=== PATIENT | female | born 1985 | race Caucasian/White ===

== ENCOUNTER 2021-04-23 11:24 | Emergency (ER) | payer BC ==
[~2021-04-23] VITALS: Ht 162.6 cm; Wt 81.6 kg
[2021-04-23 11:34] VITALS: BP_SYST 131
[2021-04-23] MEDS ORDERED: MORPHINE 4 MG INJ. 4 MG/ML VIAL IM ONE (12:15)
[2021-04-23] MEDS ORDERED: KETAMINE 30 MG/3 ML SYRINGE IM ONE (12:15)
[2021-04-23 12:32] LABS: BASOPHILS % (AUTO) 0.2 % (0.0-2.0); EOSINOPHILS # (AUTO) 0.1 K/uL (0.0-0.4); EOSINOPHILS % (AUTO) 1.1 % (0.0-4.0); HEMATOCRIT 47.9 % (36-48); HEMOGLOBIN 16.3 g/dL (12.0-16.0); LYMPHOCYTES # (AUTO) 0.4 K/uL (1.0-5.5); LYMPHOCYTES % (AUTO) 3.9 % (20.5-51.5); MEAN CORPUSCULAR HEMOGLOBIN 31 pg (27-31); MEAN CORPUSCULAR HGB CONC 34 % (32-36); MEAN CORPUSCULAR VOLUME 90 fL (79.0-98.0); MONOCYTES # (AUTO) 0.6 K/uL (0.0-1.0); MONOCYTES % (AUTO) 6.4 % (1.7-9.3); NEUTROPHILS # (AUTO) 8.5 K/uL (1.8-7.7); NEUTROPHILS % (AUTO) 88.4 % (40.0-70.0); PLATELET COUNT (AUTO) 191 K/uL (130-430); RED CELL DISTRIBUTION WIDTH 15.3 % (9.0-15.0); WHITE BLOOD COUNT (AUTO) 9.7 K/uL (4.8-10.8)
[2021-04-23 12:49] LABS: CALCIUM 8.5 mg/dL (8.4-11.0); CREATININE 0.86 mg/dL (0.55-1.30); POTASSIUM 3.8 mmol/L (3.5-5.1)
[2021-04-23 13:05] LABS: ALBUMIN 3.1 g/dL (3.4-4.8); TOTAL BILIRUBIN 0.3 mg/dL (0.0-1.0)
[2021-04-23] MEDS ORDERED: HYDR-3927 PO (13:20)
[2021-04-23 13:36] VITALS: BP_SYST 131
== END 2021-04-23 13:36 | disposition home or self-care (01) ==
LOC: SED 11:24
DX: M54.6 Pain in thoracic spine (principal); C72.0 Malignant neoplasm of spinal cord; Z79.899 Other long term (current) drug therapy
CPT/HCPCS: 36415; 80053; 85025; 96372; 99284; J2270

== ENCOUNTER 2023-05-19 15:07 | Inpatient (IN) | payer BC ==
[~2023-05-19] VITALS: Ht 165.1 cm; Wt 86.2 kg
[~2023-05-19 15:07] MED LIST: HYDR-3927 PO
[2023-05-19 15:37] VITALS: BP_SYST 122; PULSE 129; RESP 21; TEMP 98.7; O2SAT 100
[2023-05-19] MEDS ORDERED: MORPHINE 2 MG/ML INJ. SYRINGE IVP ONE (16:00)
[2023-05-19] MEDS ORDERED: ONDANSETRON HCL 4 MG/2 ML VIAL IVP ONE (16:00)
[2023-05-19] MEDS ORDERED: NACL 0.9% 1,000 ML IV ONE ×2 (16:00→20:45)
[2023-05-19 16:53] LABS: BASOPHILS % (AUTO) 0.6 % (0.0-2.0); EOSINOPHILS % (AUTO) 0.5 % (0.0-4.0); HEMATOCRIT 29.2 % (36-48); HEMOGLOBIN 9.8 g/dL (12.0-16.0); LYMPHOCYTES # (AUTO) 0.8 K/uL (1.0-5.5); LYMPHOCYTES % (AUTO) 10.5 % (20.5-51.5); MEAN CORPUSCULAR HEMOGLOBIN 30 pg (27-31); MEAN CORPUSCULAR HGB CONC 33 % (32-36); MEAN CORPUSCULAR VOLUME 90 fL (79.0-98.0); MONOCYTES # (AUTO) 0.7 K/uL (0.0-1.0); MONOCYTES % (AUTO) 9.2 % (1.7-9.3); NEUTROPHILS # (AUTO) 6.4 K/uL (1.8-7.7); NEUTROPHILS % (AUTO) 79.2 % (40.0-70.0); PLATELET COUNT (AUTO) 319 K/uL (130-430); RED BLOOD CELL COUNT(AUTO) 3.25 MIL/uL (4.2-6.2); RED CELL DISTRIBUTION WIDTH 13.1 % (9.0-15.0)
[2023-05-19 17:10] LABS: CALCIUM 8.9 mg/dL (8.4-11.0); CREATININE 1.25 mg/dL (0.55-1.30); POTASSIUM 4.1 mmol/L (3.5-5.1)
[2023-05-19 17:17] LABS: ALBUMIN 2.9 g/dL (3.4-4.8); TOTAL BILIRUBIN 0.5 mg/dL (0.0-1.0); TOTAL PROTEIN, SERUM 7.7 g/dL (6.4-8.3)
[2023-05-19 18:50] LABS: BILIRUBIN,URINE NEGATIVE (NEGATIVE); BLOOD, URINE 1+ (NEGATIVE); CLARITY/URINE Cloudy (CLEAR); COLOR,URINE YELLOW (YELLOW); GLUCOSE,URINE NEGATIVE (NEGATIVE); KETONES,URINE NEGATIVE (NEGATIVE); LEUKOCYTE ESTERASE ,URINE 1+ (NEGATIVE); NITRITE, URINE POSITIVE (NEGATIVE); PROTEIN URINE 2+ (NEGATIVE)
[2023-05-19 19:10] LABS: COVID19 ANTIGEN SOFIA FIA NEGATIVE (NEGATIVE)
[2023-05-19 19:22] LABS: INFLUENZA TYPE A negative (NEGATIVE); INFLUENZA TYPE B NEGATIVE (NEGATIVE)
[2023-05-19] MEDS ORDERED: MORPHINE 4 MG INJ. 4 MG/ML VIAL IM ONE (19:30)
[2023-05-19] MEDS ORDERED: IBUPROFEN 600 MG TABLET PO ONE (19:45)
[2023-05-19] MEDS ORDERED: ACETAMINOPHEN 325 MG TABLET PO ONE (19:45)
[2023-05-19 19:48] LABS: BACTERIA,URINE MANY /HPF (None Seen); MUCUS,URINE None Seen /LPF (None Seen)
[2023-05-19] MEDS ORDERED: OXYC-521 PO (21:45)
[2023-05-19] MEDS ORDERED: [UNRECOGNIZED DRUG - CODE] PO (21:45)
[2023-05-19] MEDS ORDERED: ONDA4TAB11 PO (21:45)
[2023-05-19] MEDS ORDERED: GABA-534 PO (21:45)
[2023-05-19] MEDS ORDERED: METH500T PO (21:45)
[2023-05-19] MEDS ORDERED: NORT50CA5 PO (21:45)
[2023-05-19] MEDS ORDERED: D5/0.45 NS 1,000 ML IV ONE (21:45)
[2023-05-19] MEDS ORDERED: ONDANSETRON HCL 4 MG/2 ML VIAL IVP PRN (22:00)
[2023-05-19] MEDS: GABAPENTIN 300 MG CAPSULE PO SCH (22:53)
[2023-05-19 23:52] VITALS: BP_SYST 105; PULSE 109; RESP 18; TEMP 97.5
[2023-05-20 00:15] VITALS: O2SAT 93
[2023-05-20] MEDS: oxyCODONE HCL 5 MG TABLET PO PRN ×3 (03:31→15:32)
[2023-05-20] MEDS: GABAPENTIN 300 MG CAPSULE PO SCH ×3 (06:13→21:13)
[2023-05-20] MEDS: SIMETHICONE 80 MG TAB.CHEW PO SCH ×4 (06:54→21:14)
[2023-05-20] MEDS: methocarbamoL 500 MG TABLET PO PRN (06:54)
[2023-05-20 08:00] VITALS: O2SAT 95
[2023-05-20 08:30] VITALS: BP_SYST 115; PULSE 113; RESP 16; TEMP 101.8; O2SAT 95
[2023-05-20] MEDS ORDERED: ACETAMINOPHEN 325 MG TABLET ONE (08:52)
[2023-05-20] MEDS ORDERED: ACETAMINOPHEN 325 MG TABLET PO PRN (09:15)
[2023-05-20 10:32] LABS: BASOPHILS % (AUTO) 0.3 % (0.0-2.0); EOSINOPHILS % (AUTO) 0.2 % (0.0-4.0); HEMATOCRIT 26.7 % (36-48); HEMOGLOBIN 8.9 g/dL (12.0-16.0); LYMPHOCYTES % (AUTO) 9.7 % (20.5-51.5); MEAN CORPUSCULAR HEMOGLOBIN 29 pg (27-31); MEAN CORPUSCULAR HGB CONC 33 % (32-36); MEAN CORPUSCULAR VOLUME 88 fL (79.0-98.0); MONOCYTES # (AUTO) 0.9 K/uL (0.0-1.0); MONOCYTES % (AUTO) 9.4 % (1.7-9.3); NEUTROPHILS # (AUTO) 8.1 K/uL (1.8-7.7); NEUTROPHILS % (AUTO) 80.4 % (40.0-70.0); PLATELET COUNT (AUTO) 282 K/uL (130-430); RED BLOOD CELL COUNT(AUTO) 3.03 MIL/uL (4.2-6.2)
[2023-05-20 10:35] LABS: ALBUMIN 2.5 g/dL (3.4-4.8); CALCIUM 7.9 mg/dL (8.4-11.0); CREATININE 1.21 mg/dL (0.55-1.30); POTASSIUM 3.8 mmol/L (3.5-5.1); TOTAL BILIRUBIN 0.6 mg/dL (0.0-1.0); TOTAL PROTEIN, SERUM 6.9 g/dL (6.4-8.3)
[2023-05-20] MEDS: cefTRIAXone 1 GM IVPB PREMIX 50 ML IV SCH (10:45)
[2023-05-20 12:31] VITALS: BP_SYST 115; PULSE 106; RESP 19; TEMP 97.8; O2SAT 97
[2023-05-20] MEDS ORDERED: COMMUNICATION ORDER XX ONE (13:15)
[2023-05-20] MEDS: [UNRECOGNIZED DRUG - OTHER] PO SCH (13:40)
[2023-05-20] MEDS: ACETAMINOPHEN 325 MG TABLET PO PRN (15:33)
[2023-05-20 16:02] VITALS: BP_SYST 117; PULSE 110; RESP 17; TEMP 100.8; O2SAT 96
[2023-05-20 20:00] VITALS: BP_SYST 130; PULSE 124; RESP 20; TEMP 99.7; O2SAT 97
[2023-05-20] MEDS: methocarbamoL 500 MG TABLET PO SCH (21:14)
[2023-05-20] MEDS: NORTRIPTYLINE HCL 25 MG CAPSULE PO SCH (21:14)
[2023-05-21] VITALS: BP_SYST 104; PULSE 124; RESP 16; TEMP 97.5; O2SAT 91
[2023-05-21 05:41] LABS: BASOPHILS # (AUTO) 0.1 K/uL (0.0-0.2); BASOPHILS % (AUTO) 1.1 % (0.0-2.0); EOSINOPHILS # (AUTO) 0.1 K/uL (0.0-0.4); EOSINOPHILS % (AUTO) 0.6 % (0.0-4.0); HEMATOCRIT 25.1 % (36-48); HEMOGLOBIN 8.3 g/dL (12.0-16.0); LYMPHOCYTES # (AUTO) 0.8 K/uL (1.0-5.5); LYMPHOCYTES % (AUTO) 7.4 % (20.5-51.5); MEAN CORPUSCULAR HEMOGLOBIN 30 pg (27-31); MEAN CORPUSCULAR HGB CONC 33 % (32-36); MEAN CORPUSCULAR VOLUME 90 fL (79.0-98.0); MONOCYTES # (AUTO) 0.9 K/uL (0.0-1.0); MONOCYTES % (AUTO) 7.8 % (1.7-9.3); NEUTROPHILS # (AUTO) 9.1 K/uL (1.8-7.7); NEUTROPHILS % (AUTO) 83.1 % (40.0-70.0); PLATELET COUNT (AUTO) 249 K/uL (130-430); RED CELL DISTRIBUTION WIDTH 13.3 % (9.0-15.0)
[2023-05-21 05:58] LABS: ALBUMIN 2.2 g/dL (3.4-4.8); BILIRUBIN,DIRECT 0.3 mg/dL (0.0-0.3); CALCIUM 8.2 mg/dL (8.4-11.0); CREATININE 1.16 mg/dL (0.55-1.30); POTASSIUM 3.8 mmol/L (3.5-5.1); TOTAL BILIRUBIN 0.5 mg/dL (0.0-1.0); TOTAL PROTEIN, SERUM 6.6 g/dL (6.4-8.3)
[2023-05-21] MEDS: SIMETHICONE 80 MG TAB.CHEW PO SCH ×4 (07:11→22:03)
[2023-05-21] MEDS: GABAPENTIN 300 MG CAPSULE PO SCH ×3 (07:11→22:01)
[2023-05-21 07:30] VITALS: O2SAT 93
[2023-05-21 08:05] VITALS: BP_SYST 101; PULSE 131; RESP 18; TEMP 99.3; O2SAT 93
[2023-05-21] MEDS: oxyCODONE HCL 5 MG TABLET PO PRN (08:07)
[2023-05-21] MEDS: BISACODYL 10 MG/SUPPOSITORY RC SCH (08:07)
[2023-05-21] MEDS: cefTRIAXone 1 GM IVPB PREMIX 50 ML IV SCH (11:47)
[2023-05-21] MEDS ORDERED: [UNRECOGNIZED DRUG - OTHER] PO SCH (12:00)
[2023-05-21 12:34] VITALS: BP_SYST 121; PULSE 121; RESP 18; TEMP 100.8; O2SAT 93
[2023-05-21] MEDS: ACETAMINOPHEN 325 MG TABLET PO PRN ×2 (12:42→22:06)
[2023-05-21] MEDS: [UNRECOGNIZED DRUG - OTHER] PO SCH (12:43)
[2023-05-21 16:55] VITALS: BP_SYST 100; PULSE 118; RESP 18; TEMP 99; O2SAT 94
[2023-05-21 20:00] VITALS: BP_SYST 111; PULSE 125; RESP 18; TEMP 98.6; O2SAT 95
[2023-05-21] MEDS: NORTRIPTYLINE HCL 25 MG CAPSULE PO SCH (22:03)
[2023-05-21] MEDS: methocarbamoL 500 MG TABLET PO SCH (22:03)
[2023-05-22] VITALS (9 sets, daily range): BP systolic 101–117; PULSE 115–122; RESP 18–19; TEMP 97.3–100.1; O2SAT 90–98
[2023-05-22] MEDS: methocarbamoL 500 MG TABLET PO PRN (06:35)
[2023-05-22] MEDS: SIMETHICONE 80 MG TAB.CHEW PO SCH ×4 (06:35→20:57)
[2023-05-22] MEDS: GABAPENTIN 300 MG CAPSULE PO SCH (06:35)
[2023-05-22 06:49] LABS: BASOPHILS % (AUTO) 0.2 % (0.0-2.0); EOSINOPHILS # (AUTO) 0.1 K/uL (0.0-0.4); EOSINOPHILS % (AUTO) 0.7 % (0.0-4.0); HEMATOCRIT 23.7 % (36-48); HEMOGLOBIN 7.9 g/dL (12.0-16.0); LYMPHOCYTES # (AUTO) 1.2 K/uL (1.0-5.5); MEAN CORPUSCULAR HEMOGLOBIN 30 pg (27-31); MEAN CORPUSCULAR HGB CONC 33 % (32-36); MEAN CORPUSCULAR VOLUME 90 fL (79.0-98.0); MONOCYTES % (AUTO) 8.9 % (1.7-9.3); NEUTROPHILS # (AUTO) 8.6 K/uL (1.8-7.7); NEUTROPHILS % (AUTO) 79.2 % (40.0-70.0); PLATELET COUNT (AUTO) 291 K/uL (130-430); RED BLOOD CELL COUNT(AUTO) 2.63 MIL/uL (4.2-6.2); RED CELL DISTRIBUTION WIDTH 13.5 % (9.0-15.0); WHITE BLOOD COUNT (AUTO) 10.8 K/uL (4.8-10.8)
[2023-05-22 07:14] LABS: CALCIUM 8.6 mg/dL (8.4-11.0); CREATININE 1.13 mg/dL (0.55-1.30); POTASSIUM 3.7 mmol/L (3.5-5.1); TOTAL BILIRUBIN 0.3 mg/dL (0.0-1.0); TOTAL PROTEIN, SERUM 6.7 g/dL (6.4-8.3)
[2023-05-22 07:47] LABS: ERYTHROCYTE SEDIMENTATION RATE 62 MM/HR (0-20)
[2023-05-22] MEDS: BISACODYL 10 MG/SUPPOSITORY RC SCH (09:15)
[2023-05-22 12:06] LABS: HEPATITIS C VIRUS AB Non Reactive (Non Reactive)
[2023-05-22 13:06] LABS: HEPATITIS A AB, IgM Negative (Negative); HEPATITIS B CORE AB, IgM Negative (Negative); HEPATITIS B SURFACE AG Negative (Negative)
[2023-05-22] MEDS: [UNRECOGNIZED DRUG - OTHER] PO SCH (13:09)
[2023-05-22] MEDS: GABAPENTIN 400 MG CAPSULE PO SCH ×2 (14:34→20:55)
[2023-05-22] MEDS: oxyCODONE HCL 5 MG TABLET PO PRN (17:04)
[2023-05-22] MEDS: ALBUTEROL SULFATE 0.083% 2.5 MG/3 ML VIAL.NEB INH SCH ×2 (19:40→23:22)
[2023-05-22] MEDS: IPRATROPIUM BROM 0.5 MG/2.5 ML VIAL.NEB (ATROVENT) INH SCH ×2 (19:40→23:22)
[2023-05-22] MEDS: methocarbamoL 500 MG TABLET PO SCH (20:55)
[2023-05-22] MEDS: NORTRIPTYLINE HCL 25 MG CAPSULE PO SCH (20:56)
[2023-05-22] MEDS: ACETAMINOPHEN 325 MG TABLET PO PRN (20:56)
[2023-05-23] VITALS (9 sets, daily range): BP systolic 114–125; PULSE 109–121; RESP 16–18; TEMP 97.4–99.5; O2SAT 90–98
[2023-05-23] MEDS: oxyCODONE HCL 5 MG TABLET PO PRN ×4 (02:36→21:09)
[2023-05-23] MEDS: ALBUTEROL SULFATE 0.083% 2.5 MG/3 ML VIAL.NEB INH SCH ×5 (03:00→20:29)
[2023-05-23] MEDS: IPRATROPIUM BROM 0.5 MG/2.5 ML VIAL.NEB (ATROVENT) INH SCH ×5 (03:00→20:29)
[2023-05-23] MEDS: GABAPENTIN 400 MG CAPSULE PO SCH ×3 (05:44→21:08)
[2023-05-23] MEDS: SIMETHICONE 80 MG TAB.CHEW PO SCH ×4 (07:00→21:00)
[2023-05-23 07:07] LABS: BASOPHILS # (AUTO) 0.1 K/uL (0.0-0.2); BASOPHILS % (AUTO) 0.6 % (0.0-2.0); EOSINOPHILS # (AUTO) 0.1 K/uL (0.0-0.4); EOSINOPHILS % (AUTO) 0.6 % (0.0-4.0); HEMATOCRIT 24.6 % (36-48); HEMOGLOBIN 8.1 g/dL (12.0-16.0); LYMPHOCYTES % (AUTO) 10.6 % (20.5-51.5); MEAN CORPUSCULAR HEMOGLOBIN 30 pg (27-31); MEAN CORPUSCULAR HGB CONC 33 % (32-36); MEAN CORPUSCULAR VOLUME 90 fL (79.0-98.0); MONOCYTES % (AUTO) 10.3 % (1.7-9.3); NEUTROPHILS # (AUTO) 7.5 K/uL (1.8-7.7); NEUTROPHILS % (AUTO) 77.9 % (40.0-70.0); PLATELET COUNT (AUTO) 398 K/uL (130-430); RED BLOOD CELL COUNT(AUTO) 2.73 MIL/uL (4.2-6.2); RED CELL DISTRIBUTION WIDTH 13.7 % (9.0-15.0); WHITE BLOOD COUNT (AUTO) 9.6 K/uL (4.8-10.8)
[2023-05-23 07:16] LABS: CALCIUM 8.2 mg/dL (8.4-11.0); CREATININE 1.14 mg/dL (0.55-1.30); POTASSIUM 3.5 mmol/L (3.5-5.1)
[2023-05-23 07:38] LABS: ERYTHROCYTE SEDIMENTATION RATE 52 MM/HR (0-20)
[2023-05-23] MEDS: BISACODYL 10 MG/SUPPOSITORY RC SCH (08:31)
[2023-05-23] MEDS: methocarbamoL 500 MG TABLET PO PRN (11:00)
[2023-05-23] MEDS: [UNRECOGNIZED DRUG - OTHER] PO SCH (11:01)
[2023-05-23] MEDS: NORTRIPTYLINE HCL 25 MG CAPSULE PO SCH (21:08)
[2023-05-23] MEDS: methocarbamoL 500 MG TABLET PO SCH (21:09)
[2023-05-23] MEDS: traZODone HCL 50 MG TABLET (DESYREL) PO PRN (23:00)
[2023-05-24] VITALS (18 sets, daily range): BP systolic 99–148; PULSE 105–126; RESP 16–22; TEMP 98–99.9; O2SAT 86–94
[2023-05-24] MEDS: dilTIAZem HCL IVP 5 MG/ML VIAL IVP PRN (00:14)
[2023-05-24] MEDS: ALBUTEROL SULFATE 0.083% 2.5 MG/3 ML VIAL.NEB INH SCH ×7 (00:20→23:00)
[2023-05-24] MEDS: IPRATROPIUM BROM 0.5 MG/2.5 ML VIAL.NEB (ATROVENT) INH SCH ×7 (00:20→23:00)
[2023-05-24] MEDS: oxyCODONE HCL 5 MG TABLET PO PRN ×2 (05:29→17:15)
[2023-05-24] MEDS: GABAPENTIN 400 MG CAPSULE PO SCH ×3 (05:29→21:23)
[2023-05-24] MEDS: SIMETHICONE 80 MG TAB.CHEW PO SCH ×4 (05:29→20:54)
[2023-05-24 07:39] LABS: BASOPHILS % (AUTO) 0.4 % (0.0-2.0); EOSINOPHILS # (AUTO) 0.1 K/uL (0.0-0.4); HEMATOCRIT 24.1 % (36-48); LYMPHOCYTES # (AUTO) 1.2 K/uL (1.0-5.5); LYMPHOCYTES % (AUTO) 11.3 % (20.5-51.5); MEAN CORPUSCULAR HEMOGLOBIN 30 pg (27-31); MEAN CORPUSCULAR HGB CONC 33 % (32-36); MEAN CORPUSCULAR VOLUME 89 fL (79.0-98.0); MONOCYTES # (AUTO) 1.1 K/uL (0.0-1.0); MONOCYTES % (AUTO) 10.9 % (1.7-9.3); NEUTROPHILS # (AUTO) 7.9 K/uL (1.8-7.7); NEUTROPHILS % (AUTO) 76.4 % (40.0-70.0); PLATELET COUNT (AUTO) 494 K/uL (130-430); WHITE BLOOD COUNT (AUTO) 10.4 K/uL (4.8-10.8)
[2023-05-24 07:54] LABS: CALCIUM 8.3 mg/dL (8.4-11.0); CREATININE 1.04 mg/dL (0.55-1.30); FREE T4 (FREE THYROXINE) 1.4 ng/dL (0.6-1.6); POTASSIUM 3.7 mmol/L (3.5-5.1); THYROID STIMULATING HORMONE 0.87 uIu/mL (0.34-4.82)
[2023-05-24 08:14] LABS: ERYTHROCYTE SEDIMENTATION RATE 62 MM/HR (0-20)
[2023-05-24] MEDS: BISACODYL 10 MG/SUPPOSITORY RC SCH (09:00)
[2023-05-24 10:43] LABS: ABG O2 SAT% ESTIMATE 93.8 % (94.0-100.0); BLOOD GAS BASE EXCESS 3.1 mmol/L (-3.0-3.0); BLOOD GAS HCO3 28.7 mmol/L (21.0-27.0); BLOOD GAS PCO2 47.5 mmHg (35.0-45.0); BLOOD GAS PH 7.399 (7.350-7.450); BLOOD GAS PO2 69.4 mmHg (75.0-100.0)
[2023-05-24 10:46] LABS: ALLEN'S TEST POSITIVE (P)
[2023-05-24] MEDS: [UNRECOGNIZED DRUG - OTHER] PO SCH (12:00)
[2023-05-24] MEDS: methocarbamoL 500 MG TABLET PO PRN (14:37)
[2023-05-24] MEDS: methocarbamoL 500 MG TABLET PO SCH (20:54)
[2023-05-24] MEDS: NORTRIPTYLINE HCL 25 MG CAPSULE PO SCH (20:54)
[2023-05-25] VITALS (28 sets, daily range): BP systolic 92–163; PULSE 90–125; RESP 12–26; TEMP 98–98.6; O2SAT 80–94
[2023-05-25] MEDS: ALBUTEROL SULFATE 0.083% 2.5 MG/3 ML VIAL.NEB INH SCH ×6 (02:47→23:29)
[2023-05-25] MEDS: IPRATROPIUM BROM 0.5 MG/2.5 ML VIAL.NEB (ATROVENT) INH SCH ×6 (02:47→23:29)
[2023-05-25 05:31] LABS: ERYTHROCYTE SEDIMENTATION RATE 33 MM/HR (0-20)
[2023-05-25 05:39] LABS: BASOPHILS # (AUTO) 0.1 K/uL (0.0-0.2); BASOPHILS % (AUTO) 0.6 % (0.0-2.0); EOSINOPHILS # (AUTO) 0.2 K/uL (0.0-0.4); EOSINOPHILS % (AUTO) 1.7 % (0.0-4.0); HEMATOCRIT 24.4 % (36-48); HEMOGLOBIN 8.2 g/dL (12.0-16.0); LYMPHOCYTES # (AUTO) 1.2 K/uL (1.0-5.5); LYMPHOCYTES % (AUTO) 11.4 % (20.5-51.5); MEAN CORPUSCULAR HEMOGLOBIN 30 pg (27-31); MEAN CORPUSCULAR HGB CONC 34 % (32-36); MEAN CORPUSCULAR VOLUME 90 fL (79.0-98.0); MONOCYTES # (AUTO) 0.9 K/uL (0.0-1.0); MONOCYTES % (AUTO) 9.1 % (1.7-9.3); NEUTROPHILS # (AUTO) 8.1 K/uL (1.8-7.7); NEUTROPHILS % (AUTO) 77.2 % (40.0-70.0); PLATELET COUNT (AUTO) 557 K/uL (130-430); RED BLOOD CELL COUNT(AUTO) 2.72 MIL/uL (4.2-6.2); RED CELL DISTRIBUTION WIDTH 13.8 % (9.0-15.0); WHITE BLOOD COUNT (AUTO) 10.4 K/uL (4.8-10.8)
[2023-05-25] MEDS: GABAPENTIN 400 MG CAPSULE PO SCH ×3 (05:41→21:01)
[2023-05-25 06:26] LABS: ALBUMIN 1.9 g/dL (3.4-4.8); CALCIUM 8.6 mg/dL (8.4-11.0); CREATININE 1.05 mg/dL (0.55-1.30); PHOSPHORUS 3.9 mg/dL (2.7-4.5); POTASSIUM 3.9 mmol/L (3.5-5.1); TOTAL BILIRUBIN 0.3 mg/dL (0.0-1.0); TOTAL PROTEIN, SERUM 7.1 g/dL (6.4-8.3)
[2023-05-25] MEDS: SIMETHICONE 80 MG TAB.CHEW PO SCH ×6 (07:00→20:44)
[2023-05-25] MEDS: ENOXAPARIN SODIUM 40 MG/0.4 ML SYRINGE SUBCUT SCH (09:04)
[2023-05-25] MEDS: methocarbamoL 500 MG TABLET PO PRN ×2 (09:49→16:04)
[2023-05-25] MEDS: BISACODYL 10 MG/SUPPOSITORY RC SCH (09:50)
[2023-05-25] MEDS: [UNRECOGNIZED DRUG - OTHER] PO SCH ×2 (11:05→11:17)
[2023-05-25] MEDS: oxyCODONE HCL 5 MG TABLET PO PRN (15:18)
[2023-05-25] MEDS: LORazepam 2 MG/ML VIAL IVP PRN (16:40)
[2023-05-25] MEDS: NORTRIPTYLINE HCL 25 MG CAPSULE PO SCH (20:45)
[2023-05-25] MEDS: methocarbamoL 500 MG TABLET PO SCH (21:01)
[2023-05-26] VITALS (28 sets, daily range): BP systolic 109–144; PULSE 93–118; RESP 10–28; TEMP 98–98.6; O2SAT 80–97
[2023-05-26] MEDS: IPRATROPIUM BROM 0.5 MG/2.5 ML VIAL.NEB (ATROVENT) INH SCH ×7 (03:00→23:54)
[2023-05-26] MEDS: ALBUTEROL SULFATE 0.083% 2.5 MG/3 ML VIAL.NEB INH SCH ×7 (03:00→23:54)
[2023-05-26] MEDS: GABAPENTIN 400 MG CAPSULE PO SCH ×3 (06:00→21:28)
[2023-05-26 06:19] LABS: BLOOD GAS PH 7.404 (7.350-7.450)
[2023-05-26 06:20] LABS: BLOOD GAS BASE EXCESS 6.7 mmol/L (-3.0-3.0); BLOOD GAS HCO3 33.2 mmol/L (21.0-27.0); BLOOD GAS PCO2 54.3 mmHg (35.0-45.0); BLOOD GAS PO2 42.4 mmHg (75.0-100.0)
[2023-05-26 06:21] LABS: ABG O2 SAT% ESTIMATE 77.4 % (94.0-100.0); ALLEN'S TEST Y (P)
[2023-05-26 06:44] LABS: BASOPHILS % (AUTO) 0.6 % (0.0-2.0); EOSINOPHILS # (AUTO) 0.1 K/uL (0.0-0.4); EOSINOPHILS % (AUTO) 1.5 % (0.0-4.0); HEMATOCRIT 26.9 % (36-48); HEMOGLOBIN 8.8 g/dL (12.0-16.0); LYMPHOCYTES # (AUTO) 1.1 K/uL (1.0-5.5); LYMPHOCYTES % (AUTO) 13.1 % (20.5-51.5); MEAN CORPUSCULAR HEMOGLOBIN 30 pg (27-31); MEAN CORPUSCULAR HGB CONC 33 % (32-36); MEAN CORPUSCULAR VOLUME 90 fL (79.0-98.0); MONOCYTES # (AUTO) 0.7 K/uL (0.0-1.0); MONOCYTES % (AUTO) 9.1 % (1.7-9.3); NEUTROPHILS # (AUTO) 6.1 K/uL (1.8-7.7); NEUTROPHILS % (AUTO) 75.7 % (40.0-70.0); PLATELET COUNT (AUTO) 683 K/uL (130-430); RED CELL DISTRIBUTION WIDTH 13.7 % (9.0-15.0); WHITE BLOOD COUNT (AUTO) 8.1 K/uL (4.8-10.8)
[2023-05-26 06:54] LABS: CALCIUM 8.7 mg/dL (8.4-11.0); CREATININE 0.95 mg/dL (0.55-1.30)
[2023-05-26] MEDS: SIMETHICONE 80 MG TAB.CHEW PO SCH ×4 (07:00→21:28)
[2023-05-26] MEDS ORDERED: NALOXONE HCL 0.4 MG/ML AMP (NARCAN) IVP PRN (07:45)
[2023-05-26] MEDS ORDERED: MORPHINE 2 MG/ML INJ. SYRINGE IVP PRN (07:45)
[2023-05-26 07:55] LABS: ERYTHROCYTE SEDIMENTATION RATE 119 MM/HR (0-20)
[2023-05-26] MEDS: ONDANSETRON HCL 4 MG/2 ML VIAL IVP PRN (07:59)
[2023-05-26] MEDS: LORazepam 2 MG/ML VIAL IVP PRN ×2 (08:47→23:39)
[2023-05-26] MEDS: BISACODYL 10 MG/SUPPOSITORY RC SCH (08:48)
[2023-05-26] MEDS: ENOXAPARIN SODIUM 40 MG/0.4 ML SYRINGE SUBCUT SCH (08:48)
[2023-05-26] MEDS: [UNRECOGNIZED DRUG - OTHER] PO SCH (12:00)
[2023-05-26] MEDS: NORTRIPTYLINE HCL 25 MG CAPSULE PO SCH (21:28)
[2023-05-26] MEDS: methocarbamoL 500 MG TABLET PO SCH (21:37)
[2023-05-26] MEDS: oxyCODONE HCL 5 MG TABLET PO PRN (23:38)
[2023-05-27] VITALS (29 sets, daily range): BP systolic 91–152; PULSE 86–122; RESP 12–40; TEMP 98–99.8; O2SAT 83–99
[2023-05-27] MEDS: ALBUTEROL SULFATE 0.083% 2.5 MG/3 ML VIAL.NEB INH SCH ×6 (04:38→22:33)
[2023-05-27] MEDS: IPRATROPIUM BROM 0.5 MG/2.5 ML VIAL.NEB (ATROVENT) INH SCH ×6 (04:38→22:34)
[2023-05-27 06:01] LABS: ERYTHROCYTE SEDIMENTATION RATE 50 MM/HR (0-20)
[2023-05-27 06:18] LABS: BASOPHILS # (AUTO) 0.1 K/uL (0.0-0.2); BASOPHILS % (AUTO) 0.8 % (0.0-2.0); EOSINOPHILS # (AUTO) 0.1 K/uL (0.0-0.4); EOSINOPHILS % (AUTO) 1.1 % (0.0-4.0); HEMATOCRIT 23.8 % (36-48); HEMOGLOBIN 7.8 g/dL (12.0-16.0); LYMPHOCYTES # (AUTO) 1.1 K/uL (1.0-5.5); LYMPHOCYTES % (AUTO) 15.6 % (20.5-51.5); MEAN CORPUSCULAR HEMOGLOBIN 29 pg (27-31); MEAN CORPUSCULAR HGB CONC 33 % (32-36); MEAN CORPUSCULAR VOLUME 89 fL (79.0-98.0); MONOCYTES # (AUTO) 0.7 K/uL (0.0-1.0); MONOCYTES % (AUTO) 9.2 % (1.7-9.3); NEUTROPHILS # (AUTO) 5.2 K/uL (1.8-7.7); NEUTROPHILS % (AUTO) 73.3 % (40.0-70.0); PLATELET COUNT (AUTO) 644 K/uL (130-430); RED BLOOD CELL COUNT(AUTO) 2.67 MIL/uL (4.2-6.2); RED CELL DISTRIBUTION WIDTH 13.5 % (9.0-15.0); WHITE BLOOD COUNT (AUTO) 7.1 K/uL (4.8-10.8)
[2023-05-27] MEDS: GABAPENTIN 400 MG CAPSULE PO SCH ×3 (06:23→20:51)
[2023-05-27] MEDS: SIMETHICONE 80 MG TAB.CHEW PO SCH ×4 (06:23→20:50)
[2023-05-27 06:34] LABS: ALBUMIN 1.9 g/dL (3.4-4.8); CALCIUM 8.2 mg/dL (8.4-11.0); CREATININE 0.78 mg/dL (0.55-1.30); PHOSPHORUS 3.6 mg/dL (2.7-4.5); POTASSIUM 4.3 mmol/L (3.5-5.1); TOTAL BILIRUBIN 1.2 mg/dL (0.0-1.0); TOTAL PROTEIN, SERUM 6.9 g/dL (6.4-8.3)
[2023-05-27] MEDS: ENOXAPARIN SODIUM 40 MG/0.4 ML SYRINGE SUBCUT SCH (08:51)
[2023-05-27] MEDS: BISACODYL 10 MG/SUPPOSITORY RC SCH (08:51)
[2023-05-27] MEDS: D5/0.45 NS 1,000 ML IV SCH (09:07)
[2023-05-27] MEDS: [UNRECOGNIZED DRUG - OTHER] PO SCH (12:00)
[2023-05-27] MEDS ORDERED: iohexoL 350 mgI/mL, 100 ML INFUS..BTL IV ONE (12:53)
[2023-05-27] MEDS ORDERED: CALCIUM GLUCONATE 2 GM in NS 100 ML IV ONE (13:00)
[2023-05-27] MEDS ORDERED: methocarbamoL 500 MG TABLET ONE (20:45)
[2023-05-27] MEDS: NORTRIPTYLINE HCL 25 MG CAPSULE PO SCH (20:50)
[2023-05-27] MEDS: methocarbamoL 500 MG TABLET PO SCH (20:51)
[2023-05-28] VITALS (26 sets, daily range): BP systolic 114–143; PULSE 96–119; RESP 13–26; TEMP 97.3–98.8; O2SAT 91–100
[2023-05-28] MEDS: traZODone HCL 50 MG TABLET (DESYREL) PO PRN ×2 (01:16→21:17)
[2023-05-28] MEDS: dilTIAZem HCL IVP 5 MG/ML VIAL IVP PRN (01:18)
[2023-05-28] MEDS: IPRATROPIUM BROM 0.5 MG/2.5 ML VIAL.NEB (ATROVENT) INH SCH ×6 (03:00→23:02)
[2023-05-28] MEDS: ALBUTEROL SULFATE 0.083% 2.5 MG/3 ML VIAL.NEB INH SCH ×6 (03:00→23:02)
[2023-05-28] MEDS: D5/0.45 NS 1,000 ML IV SCH (04:59)
[2023-05-28 05:26] LABS: ERYTHROCYTE SEDIMENTATION RATE 90 MM/HR (0-20)
[2023-05-28 05:36] LABS: BASOPHILS # (AUTO) 0.1 K/uL (0.0-0.2); EOSINOPHILS # (AUTO) 0.1 K/uL (0.0-0.4); EOSINOPHILS % (AUTO) 1.5 % (0.0-4.0); HEMATOCRIT 27.7 % (36-48); LYMPHOCYTES # (AUTO) 1.3 K/uL (1.0-5.5); LYMPHOCYTES % (AUTO) 16.4 % (20.5-51.5); MEAN CORPUSCULAR HEMOGLOBIN 29 pg (27-31); MEAN CORPUSCULAR HGB CONC 33 % (32-36); MEAN CORPUSCULAR VOLUME 89 fL (79.0-98.0); MONOCYTES # (AUTO) 0.7 K/uL (0.0-1.0); MONOCYTES % (AUTO) 8.2 % (1.7-9.3); NEUTROPHILS % (AUTO) 72.9 % (40.0-70.0); RED CELL DISTRIBUTION WIDTH 13.7 % (9.0-15.0); WHITE BLOOD COUNT (AUTO) 8.2 K/uL (4.8-10.8)
[2023-05-28 06:01] LABS: ALBUMIN 2.1 g/dL (3.4-4.8); CALCIUM 8.7 mg/dL (8.4-11.0); CREATININE 1.02 mg/dL (0.55-1.30); TOTAL BILIRUBIN 0.5 mg/dL (0.0-1.0); TOTAL PROTEIN, SERUM 7.5 g/dL (6.4-8.3)
[2023-05-28] MEDS: SIMETHICONE 80 MG TAB.CHEW PO SCH ×4 (06:30→21:16)
[2023-05-28] MEDS: oxyCODONE HCL 5 MG TABLET PO PRN ×2 (06:30→11:52)
[2023-05-28] MEDS: GABAPENTIN 400 MG CAPSULE PO SCH ×3 (06:30→21:17)
[2023-05-28 06:50] LABS: PLATELET COUNT (AUTO) 773 K/uL (130-430)
[2023-05-28] MEDS: BISACODYL 10 MG/SUPPOSITORY RC SCH (09:00)
[2023-05-28] MEDS ORDERED: INSULIN REGULAR, HUMAN 100 UNITS/ML, 3 ML VIAL (humuLIN R) SUBCUT PRN (09:45)
[2023-05-28] MEDS: ENOXAPARIN SODIUM 40 MG/0.4 ML SYRINGE SUBCUT SCH (10:03)
[2023-05-28] MEDS: [UNRECOGNIZED DRUG - OTHER] PO SCH (11:21)
[2023-05-28] MEDS: methocarbamoL 500 MG TABLET PO SCH (21:00)
[2023-05-28] MEDS: NORTRIPTYLINE HCL 25 MG CAPSULE PO SCH (21:18)
[2023-05-29] VITALS (29 sets, daily range): BP systolic 95–147; PULSE 86–121; RESP 9–22; TEMP 97.1–98.6; O2SAT 86–100
[2023-05-29] MEDS: ALBUTEROL SULFATE 0.083% 2.5 MG/3 ML VIAL.NEB INH SCH ×6 (03:00→23:03)
[2023-05-29] MEDS: IPRATROPIUM BROM 0.5 MG/2.5 ML VIAL.NEB (ATROVENT) INH SCH ×6 (03:00→23:03)
[2023-05-29 05:12] LABS: ERYTHROCYTE SEDIMENTATION RATE 56 MM/HR (0-20)
[2023-05-29 05:19] LABS: BASOPHILS # (AUTO) 0.1 K/uL (0.0-0.2); BASOPHILS % (AUTO) 0.8 % (0.0-2.0); EOSINOPHILS # (AUTO) 0.1 K/uL (0.0-0.4); EOSINOPHILS % (AUTO) 1.3 % (0.0-4.0); HEMATOCRIT 24.3 % (36-48); LYMPHOCYTES # (AUTO) 1.5 K/uL (1.0-5.5); MEAN CORPUSCULAR HEMOGLOBIN 29 pg (27-31); MEAN CORPUSCULAR HGB CONC 33 % (32-36); MEAN CORPUSCULAR VOLUME 90 fL (79.0-98.0); MONOCYTES # (AUTO) 0.7 K/uL (0.0-1.0); MONOCYTES % (AUTO) 7.8 % (1.7-9.3); NEUTROPHILS # (AUTO) 6.4 K/uL (1.8-7.7); NEUTROPHILS % (AUTO) 73.1 % (40.0-70.0); PLATELET COUNT (AUTO) 747 K/uL (130-430); RED BLOOD CELL COUNT(AUTO) 2.71 MIL/uL (4.2-6.2); RED CELL DISTRIBUTION WIDTH 13.7 % (9.0-15.0); WHITE BLOOD COUNT (AUTO) 8.7 K/uL (4.8-10.8)
[2023-05-29 05:45] LABS: PROTHROMBIN TIME 10.5 SECS (9.5-12.5)
[2023-05-29] MEDS: GABAPENTIN 400 MG CAPSULE PO SCH ×3 (05:48→22:31)
[2023-05-29] MEDS: SIMETHICONE 80 MG TAB.CHEW PO SCH ×4 (05:58→22:28)
[2023-05-29 06:20] LABS: ALBUMIN 1.9 g/dL (3.4-4.8); CALCIUM 7.8 mg/dL (8.4-11.0); CREATININE 1.06 mg/dL (0.55-1.30); POTASSIUM 3.6 mmol/L (3.5-5.1); TOTAL BILIRUBIN 0.3 mg/dL (0.0-1.0); TOTAL PROTEIN, SERUM 6.6 g/dL (6.4-8.3)
[2023-05-29] MEDS: BISACODYL 10 MG/SUPPOSITORY RC SCH (09:32)
[2023-05-29] MEDS: ENOXAPARIN SODIUM 40 MG/0.4 ML SYRINGE SUBCUT SCH (09:33)
[2023-05-29] MEDS: D5/0.45 NS 1,000 ML IV SCH ×2 (09:51→20:30)
[2023-05-29] MEDS: methocarbamoL 500 MG TABLET PO PRN (10:12)
[2023-05-29] MEDS ORDERED: oxyCODONE HCL 5 MG TABLET PO PRN (11:15)
[2023-05-29] MEDS: ONDANSETRON HCL 4 MG/2 ML VIAL IVP PRN (11:23)
[2023-05-29] MEDS: [UNRECOGNIZED DRUG - OTHER] PO SCH (12:00)
[2023-05-29] MEDS: NORTRIPTYLINE HCL 25 MG CAPSULE PO SCH (22:28)
[2023-05-29] MEDS: methocarbamoL 500 MG TABLET PO SCH (22:28)
[2023-05-30] VITALS (30 sets, daily range): BP systolic 104–172; PULSE 87–119; RESP 15–25; TEMP 97.6–98.2; O2SAT 84–100
[2023-05-30] MEDS: IPRATROPIUM BROM 0.5 MG/2.5 ML VIAL.NEB (ATROVENT) INH SCH ×6 (03:00→23:46)
[2023-05-30] MEDS: ALBUTEROL SULFATE 0.083% 2.5 MG/3 ML VIAL.NEB INH SCH ×6 (03:00→23:46)
[2023-05-30] MEDS: D5/0.45 NS 1,000 ML IV SCH (03:34)
[2023-05-30 05:45] LABS: CALCIUM 7.9 mg/dL (8.4-11.0); CREATININE 1.01 mg/dL (0.55-1.30); POTASSIUM 3.9 mmol/L (3.5-5.1)
[2023-05-30 05:47] LABS: EOSINOPHILS # (AUTO) 0.2 K/uL (0.0-0.4); EOSINOPHILS % (AUTO) 1.9 % (0.0-4.0); HEMATOCRIT 24.6 % (36-48); HEMOGLOBIN 8.1 g/dL (12.0-16.0); LYMPHOCYTES # (AUTO) 1.7 K/uL (1.0-5.5); LYMPHOCYTES % (AUTO) 17.3 % (20.5-51.5); MEAN CORPUSCULAR HEMOGLOBIN 30 pg (27-31); MEAN CORPUSCULAR HGB CONC 33 % (32-36); MEAN CORPUSCULAR VOLUME 89 fL (79.0-98.0); MONOCYTES # (AUTO) 0.6 K/uL (0.0-1.0); MONOCYTES % (AUTO) 6.3 % (1.7-9.3); NEUTROPHILS # (AUTO) 7.1 K/uL (1.8-7.7); NEUTROPHILS % (AUTO) 73.5 % (40.0-70.0); RED BLOOD CELL COUNT(AUTO) 2.75 MIL/uL (4.2-6.2); RED CELL DISTRIBUTION WIDTH 13.4 % (9.0-15.0); WHITE BLOOD COUNT (AUTO) 9.6 K/uL (4.8-10.8)
[2023-05-30] MEDS: GABAPENTIN 400 MG CAPSULE PO SCH ×3 (06:41→21:26)
[2023-05-30] MEDS: SIMETHICONE 80 MG TAB.CHEW PO SCH ×4 (07:00→21:26)
[2023-05-30 08:20] LABS: ERYTHROCYTE SEDIMENTATION RATE 126 MM/HR (0-20)
[2023-05-30] MEDS: BISACODYL 10 MG/SUPPOSITORY RC SCH (10:27)
[2023-05-30] MEDS: ENOXAPARIN SODIUM 40 MG/0.4 ML SYRINGE SUBCUT SCH (10:27)
[2023-05-30 11:59] LABS: PLATELET COUNT (AUTO) 844 K/uL (130-430)
[2023-05-30] MEDS: [UNRECOGNIZED DRUG - OTHER] PO SCH (13:36)
[2023-05-30] MEDS: NORTRIPTYLINE HCL 25 MG CAPSULE PO SCH (21:26)
[2023-05-30] MEDS: methocarbamoL 500 MG TABLET PO SCH (21:28)
[2023-05-31] VITALS (23 sets, daily range): BP systolic 98–144; PULSE 90–111; RESP 15–24; TEMP 97.6–97.8; O2SAT 84–98
[2023-05-31] MEDS: ALBUTEROL SULFATE 0.083% 2.5 MG/3 ML VIAL.NEB INH SCH ×6 (03:00→23:42)
[2023-05-31] MEDS: IPRATROPIUM BROM 0.5 MG/2.5 ML VIAL.NEB (ATROVENT) INH SCH ×6 (03:00→23:42)
[2023-05-31] MEDS: D5/0.45 NS 1,000 ML IV SCH (03:29)
[2023-05-31] MEDS ORDERED: GABAPENTIN 400 MG CAPSULE ONE ×2 (05:33→05:34)
[2023-05-31] MEDS: GABAPENTIN 400 MG CAPSULE PO SCH ×3 (05:53→21:38)
[2023-05-31 06:06] LABS: BASOPHILS # (AUTO) 0.1 K/uL (0.0-0.2); EOSINOPHILS # (AUTO) 0.2 K/uL (0.0-0.4); EOSINOPHILS % (AUTO) 2.1 % (0.0-4.0); HEMATOCRIT 25.4 % (36-48); HEMOGLOBIN 8.3 g/dL (12.0-16.0); LYMPHOCYTES # (AUTO) 2.1 K/uL (1.0-5.5); LYMPHOCYTES % (AUTO) 21.5 % (20.5-51.5); MEAN CORPUSCULAR HEMOGLOBIN 30 pg (27-31); MEAN CORPUSCULAR HGB CONC 33 % (32-36); MEAN CORPUSCULAR VOLUME 90 fL (79.0-98.0); MONOCYTES # (AUTO) 0.4 K/uL (0.0-1.0); MONOCYTES % (AUTO) 4.5 % (1.7-9.3); NEUTROPHILS # (AUTO) 6.8 K/uL (1.8-7.7); NEUTROPHILS % (AUTO) 70.9 % (40.0-70.0); RED BLOOD CELL COUNT(AUTO) 2.82 MIL/uL (4.2-6.2); RED CELL DISTRIBUTION WIDTH 13.4 % (9.0-15.0); WHITE BLOOD COUNT (AUTO) 9.6 K/uL (4.8-10.8)
[2023-05-31 08:38] LABS: PLATELET COUNT (AUTO) 869 K/uL (130-430)
[2023-05-31] MEDS: ENOXAPARIN SODIUM 40 MG/0.4 ML SYRINGE SUBCUT SCH (09:31)
[2023-05-31] MEDS: BISACODYL 10 MG/SUPPOSITORY RC SCH (09:31)
[2023-05-31] MEDS: SIMETHICONE 80 MG TAB.CHEW PO SCH ×3 (10:55→21:38)
[2023-05-31] MEDS: [UNRECOGNIZED DRUG - OTHER] PO SCH (12:00)
[2023-05-31] MEDS: methocarbamoL 500 MG TABLET PO SCH (21:38)
[2023-05-31] MEDS: NORTRIPTYLINE HCL 25 MG CAPSULE PO SCH (21:38)
[2023-06-01] VITALS (11 sets, daily range): BP systolic 110–131; PULSE 102–115; RESP 16–19; TEMP 97.2–98.8; O2SAT 94–100
[2023-06-01] MEDS: oxyCODONE HCL 5 MG TABLET PO PRN ×3 (00:35→22:40)
[2023-06-01] MEDS: D5/0.45 NS 1,000 ML IV SCH (01:25)
[2023-06-01] MEDS: IPRATROPIUM BROM 0.5 MG/2.5 ML VIAL.NEB (ATROVENT) INH SCH ×5 (03:00→20:11)
[2023-06-01] MEDS: ALBUTEROL SULFATE 0.083% 2.5 MG/3 ML VIAL.NEB INH SCH ×5 (03:00→20:11)
[2023-06-01] MEDS: GABAPENTIN 400 MG CAPSULE PO SCH ×3 (06:55→22:02)
[2023-06-01] MEDS: SIMETHICONE 80 MG TAB.CHEW PO SCH ×4 (06:55→22:01)
[2023-06-01] MEDS: BISACODYL 10 MG/SUPPOSITORY RC SCH (08:47)
[2023-06-01] MEDS: ENOXAPARIN SODIUM 40 MG/0.4 ML SYRINGE SUBCUT SCH (08:47)
[2023-06-01] MEDS: [UNRECOGNIZED DRUG - OTHER] PO SCH (11:16)
[2023-06-01 12:08] LABS: BASOPHILS # (AUTO) 0.1 K/uL (0.0-0.2)
[2023-06-01] MEDS: NORTRIPTYLINE HCL 25 MG CAPSULE PO SCH (22:01)
[2023-06-01] MEDS: methocarbamoL 500 MG TABLET PO SCH (22:01)
[2023-06-02] VITALS (10 sets, daily range): BP systolic 114–145; PULSE 102–129; RESP 18–20; TEMP 97.6–98.4; O2SAT 92–99
[2023-06-02] MEDS: ALBUTEROL SULFATE 0.083% 2.5 MG/3 ML VIAL.NEB INH SCH ×6 (00:09→19:27)
[2023-06-02] MEDS: IPRATROPIUM BROM 0.5 MG/2.5 ML VIAL.NEB (ATROVENT) INH SCH ×6 (00:09→19:27)
[2023-06-02] MEDS: traZODone HCL 50 MG TABLET (DESYREL) PO PRN (01:15)
[2023-06-02 02:07] LABS: FOLATE (FOLIC ACID) 12.3 ng/mL (>3.0)
[2023-06-02] MEDS: D5/0.45 NS 1,000 ML IV SCH (04:30)
[2023-06-02 05:11] LABS: BASOPHILS # (AUTO) 0.1 K/uL (0.0-0.2); EOSINOPHILS # (AUTO) 0.2 K/uL (0.0-0.4); EOSINOPHILS % (AUTO) 1.4 % (0.0-4.0); HEMATOCRIT 26.4 % (36-48); HEMOGLOBIN 8.9 g/dL (12.0-16.0); LYMPHOCYTES % (AUTO) 15.5 % (20.5-51.5); MEAN CORPUSCULAR HEMOGLOBIN 30 pg (27-31); MEAN CORPUSCULAR HGB CONC 34 % (32-36); MEAN CORPUSCULAR VOLUME 89 fL (79.0-98.0); MONOCYTES # (AUTO) 0.8 K/uL (0.0-1.0); MONOCYTES % (AUTO) 6.5 % (1.7-9.3); NEUTROPHILS # (AUTO) 9.7 K/uL (1.8-7.7); NEUTROPHILS % (AUTO) 75.6 % (40.0-70.0); RED BLOOD CELL COUNT(AUTO) 2.96 MIL/uL (4.2-6.2); RED CELL DISTRIBUTION WIDTH 13.7 % (9.0-15.0); WHITE BLOOD COUNT (AUTO) 12.8 K/uL (4.8-10.8)
[2023-06-02 05:19] LABS: PLATELET COUNT (AUTO) 932 K/uL (130-430)
[2023-06-02 05:21] LABS: ERYTHROCYTE SEDIMENTATION RATE 104 MM/HR (0-20)
[2023-06-02 05:25] LABS: CALCIUM 8.4 mg/dL (8.4-11.0); CREATININE 1.09 mg/dL (0.55-1.30); POTASSIUM 4.2 mmol/L (3.5-5.1)
[2023-06-02] MEDS: GABAPENTIN 400 MG CAPSULE PO SCH ×2 (06:06→13:26)
[2023-06-02] MEDS: oxyCODONE HCL 5 MG TABLET PO PRN (06:16)
[2023-06-02] MEDS ORDERED: ASPIRIN 81 MG TABLET(ECOTRIN) PO SCH (07:00)
[2023-06-02] MEDS: SIMETHICONE 80 MG TAB.CHEW PO SCH ×3 (07:00→17:00)
[2023-06-02] MEDS: BISACODYL 10 MG/SUPPOSITORY RC SCH (09:00)
[2023-06-02] MEDS: ENOXAPARIN SODIUM 40 MG/0.4 ML SYRINGE SUBCUT SCH (09:00)
[2023-06-02] MEDS: [UNRECOGNIZED DRUG - OTHER] PO SCH (12:00)
[2023-06-02] MEDS ORDERED: ASPI-1393 PO (15:40)
[2023-06-02] MEDS ORDERED: SIME80TA15 PO (15:40)
[2023-06-02] MEDS ORDERED: TRAZ-250 PO (15:40)
== END 2023-06-02 20:22 | disposition home health service (06) | DRG 871 ==
LOC: SED 15:07 → STU 21:42 → SIC 05-24 11:34 → STU 05-31 23:14
PROVIDERS: ADMIT Preventive Medicine Preventive Medicine/Occupational Environmental Medicine; ATTEND Preventive Medicine Preventive Medicine/Occupational Environmental Medicine
PROC: 05HY33Z Insertion of Infusion Device into Upper Vein, Percutaneous Approach (ICD-10-PCS; principal; 2023-05-26)
PROC: B54NZZA Ultrasonography of Left Upper Extremity Veins, Guidance (ICD-10-PCS; 2023-05-26)
DX: A41.51 Sepsis due to Escherichia coli [E. coli] (principal); J18.9 Pneumonia, unspecified organism; R65.21 Severe sepsis with septic shock; J96.01 Acute respiratory failure with hypoxia; Q85.83 Von Hippel-Lindau syndrome; N13.6 Pyonephrosis; E87.1 Hypo-osmolality and hyponatremia; K86.2 Cyst of pancreas; E83.51 Hypocalcemia; E83.42 Hypomagnesemia; E83.41 Hypermagnesemia; D64.9 Anemia, unspecified; R74.01 Elevation of levels of liver transaminase levels; Z20.822 Contact with and (suspected) exposure to COVID-19; K80.20 Calculus of gallbladder without cholecystitis without obstruction; E88.09 Other disorders of plasma-protein metabolism, not elsewhere classified; D75.839 Thrombocytosis, unspecified; Z79.1 Long term (current) use of non-steroidal anti-inflammatories (NSAID); Z79.891 Long term (current) use of opiate analgesic; Z79.899 Other long term (current) drug therapy; Z98.2 Presence of cerebrospinal fluid drainage device; Z90.5 Acquired absence of kidney; Z85.841 Personal history of malignant neoplasm of brain; Z85.528 Personal history of other malignant neoplasm of kidney; Z79.01 Long term (current) use of anticoagulants
CPT/HCPCS: 36415; 36600; 71045; 71275; 74181; 76376; 76700-TC; 78226; 80048; 80053; 80074; 80076; 81000; 82272; 82550; 82607; 82728; 82746; 82803; 83605; 83690; 83735; 84100; 84439; 84443; 85025; 85044; 85610-TC; 85651-TC; 87040; 87086; 93005; 94640; 94660; 94664; 94760; 96374; 96375; 97110-GP; 97116-GP; 97530-GP; 99291; A9537; G0378; J0610; J0696; J1650; J2060; J2270; J2405; J3490; J7060; Q9967